=== PATIENT | male | born 1990 | race Caucasian/White ===

== ENCOUNTER 2024-01-30 14:44 | Emergency (ER) | payer SELFPAY ==
[2024-01-30] MEDS: Ketorolac 30 MG/ML SDV IVPUSH ONE (16:10)
[2024-01-30] MEDS: Bupivacaine 0.5% 30 ML SDV INFILT ONE (16:14)
[2024-01-30] MEDS: Lidocaine 1% 30 ML SDV INFILT ONE (16:14)
[2024-01-30] MEDS: ceFAZolin 2 GM Vial IVPUSH ONE (16:18)
[2024-01-30] MEDS: Sodium Chloride 0.9% 10 ML Syringe FLUSH PRN (16:28)
[2024-01-30] MEDS: Bacitracin Oint 1 GM U/D Packet TOP ONE (17:01)
== END 2024-01-30 17:17 | disposition home or self-care (01) ==
LOC: DL.ED 14:44
DX: S51.812A Laceration without foreign body of left forearm, initial encounter (principal); S50.11XA Contusion of right forearm, initial encounter; W37.8XXA Explosion and rupture of other pressurized tire, pipe or hose, initial encounter
CPT/HCPCS: 12032; 73080; 73090; 96374; 96375; 99283; A9270; J0665; J0690; J1885; J3490